=== PATIENT | female | born 1970 | race Caucasian/White ===

== ENCOUNTER 2019-08-06 08:57 | Day surgery (SDC) | payer OTHER ==
[2019-08-03 15:25] LABS: Absolute Lymphocytes (CBC) 2.8 K/uL (0.7-4.9); Basophils % 0.7 % (0-1.3); Hematocrit 41.5 % (36.0-45.0); Lymphocytes % 36.4 % (15.3-44.8); MPV 9.5 fL (7.6-11.3); Protime INR 0.97; RBC Red Blood Cell Count 4.41 M/uL (3.86-4.86)
[2019-08-03 15:33] LABS: Potassium 3.4 mmol/L (3.5-5.1)
[2019-08-03 15:34] LABS: Urine Appearance CLOUDY; Urine Bilirubin NEGATIVE (NEG); Urine Blood NEGATIVE (NEG); Urine Color YELLOW; Urine Glucose TRACE (NEG); Urine Protein NEGATIVE (NEG); Urine Specific Gravity >=1.030 (1.005-1.030)
[2019-08-03 15:47] LABS: Urine Microscopic Reflex ORDER UMIC
[2019-08-03 16:05] LABS: Urine Bacteria 20-50 /HPF (<20); Urine Culture Reflex Order REFLEXED; Urine Mucus 2+ /HPF (NONE SEEN); Urine RBC <5 /HPF (NONE SEEN)
[2019-08-06 09:16] LABS: Specific Gravity 1.025 (1.005-1.030)
[2019-08-06] MEDS ORDERED: SCOPOLAMINE HYDROBROMIDE PATCH TD ONE (09:41)
[2019-08-06] MEDS ORDERED: Ringers Lactate 1,000 ML IV ONE ×2 (09:41→13:13)
[2019-08-06] MEDS ORDERED: ROCURONIUM 50 MG/5 ML VIAL IV ONE (10:25)
[2019-08-06] MEDS ORDERED: LIDOCAINE 1% MPF 5 ML VIAL ONE (10:25)
[2019-08-06] MEDS ORDERED: propofoL 200 MG/20 ML VIAL IV ONE (10:25)
[2019-08-06] MEDS ORDERED: MIDAZOLAM HCL 2 MG/2 ML INJ ONE (10:25)
[2019-08-06] MEDS ORDERED: FENTANYL CITR 250 MCG/5 ML ONE (10:26)
[2019-08-06] MEDS ORDERED: BUPIVACAINE 0.25% PF 30 ML VIAL ONE (11:02)
[2019-08-06] MEDS ORDERED: NA CHLORIDE 0.9% 100 ML IV ONE (11:02)
[2019-08-06] MEDS ORDERED: VASOPRESSIN 20 UNIT/ML VIAL ONE (11:03)
[2019-08-06] MEDS: CEFAZOLIN/SWI 2gm 2 GM/20 ML SYR ONE ×2 (11:13→11:30)
[2019-08-06] MEDS ORDERED: dexAMETHasone 10 MG/ML VIAL ONE (11:40)
[2019-08-06] MEDS ORDERED: KETOROLAC 30 MG/ML INJ ONE ×2 (11:41→16:30)
[2019-08-06] MEDS ORDERED: ONDANSETRON 4 MG/2 ML VIAL ONE (11:46)
[2019-08-06] MEDS ORDERED: NS 0.9% VIAL 10 ML ONE ×2 (14:00→14:55)
[2019-08-06] MEDS ORDERED: CEFAZOLIN SODIUM 1 GM/VIAL ONE ×2 (14:00→14:36)
[2019-08-06] MEDS ORDERED: Phenylephrine HCl 10 MG/ML 1 ML VIAL ONE (14:55)
[2019-08-06] MEDS: Ringers Lactate 1,000 ML IV ONE ×2 (15:36→15:49)
[2019-08-06] MEDS ORDERED: MEPERIDINE HCL 50 MG/ML IM PRN (16:55)
[2019-08-06] MEDS ORDERED: IBUPROFEN 600 MG TAB PO PRN (16:57)
[2019-08-06] MEDS ORDERED: Ringers Lactate 1,000 ML IV SCH (17:00)
[2019-08-06 18:17] VITALS: BMI 34.5
[2019-08-06] MEDS: HYDROCODONE/APAP 5/325 MG TAB PO PRN (18:39)
[2019-08-07] MEDS: HYDROCODONE/APAP 5/325 MG TAB PO PRN ×3 (01:10→11:40)
[2019-08-07 01:27] VITALS: O2SAT 96
--- NOTE | 2019-08-07 01:50 | OP ---
Date of Procedure: 08/06/2019 Surgeon: Tona Barker MD Preoperative Diagnoses: Incomplete uterovaginal prolapse, abnormal uterine bleeding, likely from ovulatory dysfunction, AUB-L, the patient is status post ablation,SEAN, rectocele, perineal body defect Postoperative Diagnoses: Incomplete uterovaginal prolapse, abnormal uterine bleeding, likely from ovulatory dysfunction, AUB-L, the patient is status post ablation, stress urinary incontinence, rectocele, perineocele. Procedure Performed: 1. Total laparoscopic hysterectomy, bilateral salpingo-oophorectomy. 2. Uterosacral ligament suspension, colpopexy. 3. Mid urethral sling and cystoscopy. 4. Posterior repair perineorrhaphy. 5. Urethrocele repair. Anesthesia: General endotracheal. Specimens: Uterus, bilateral tubes and ovaries. Complications: No complications. Estimated Blood Loss: About 100. Urine Output: 350. Drains: No drains other than Garcia catheter. Vaginal sponge was left for packing. Findings: Pop-Q0, -2, -5, 5, 10, and 8, 0, 0, -4. There is a clear distal transverse defect of the post rectovaginal septum to the perineal body. The perineum body was torn in V-shaped fashion going proximally from the perineal body, the rectovaginal septum was torn up and amassed in the center. No other specific defect was seen now. Urethrocele was noted where the fascial support under the urethra was lost, so this was corrected and 2-0 Vicryl sutures were placed in a transverse fashion to pull this up and 3-0 Vicryl continuous running sutures to close the defect through which the sling was placed. Description Of Procedure: After informed consent was verified, patient was taken back to the OR, placed in supine fashion on the operating table. 3 g of Ancef was given. The patient was placed in a supine fashion. General anesthesia was given, placed in a dorsal lithotomy position using Roger stirrups. Arms were tucked by the side positioning checked. SCDs started. Abdomen, vulva, vagina, and perineum were prepped and draped in a sterile fashion. Garcia was placed to drain the bladder. Time-out was done and then procedure started. Speculum placed to expose the cervix. Anterior lip grasped with 2 Allis clamps. Due to the ablation, difficult to place the VCare, but it was placed depending on the assessed direction of the uterus by exam. No problems were encountered. Large cervix and so large VCare was used. Despite that, the cup seemed to be slightly smaller. Then Garcia placed to drain the bladder and attached for retrograde filling. This area was draped. 1 cm infraumbilical incision made with the scalpel using the open laparoscopy technique. Fascia incised and tagged with 0 Vicryl sutures. Peritoneum entered sharply. S-retractors were placed. Madie introduced. Insufflation done. Site of entry was checked, unremarkable. Patient placed in Trendelenburg. Bowel retracted with 3-0 Monocryl suture after 10 suprapubic and two 5s on each side and the left and right lower quadrants were placed under direct vision. Skin and fascia injected with 0.25% Marcaine before the trocars placed and at exit. The ureters were visualized, no anatomical distortion. The uterosacral on the right side was more prominent down the left side definitely a decent candidate for uterosacral colpopexy because of the right one. The right tube, utero-ovarian ligament, mesosalpinx, round ligament, broad ligament were all taken down. Vessels were exposed after taking the peritoneum down to the uterosacral in the posterior aspect and anteriorly creating a bladder flap. Then on the right side similar dissection was performed taking down the utero-ovarian ligament, mesosalpinx, round ligament, and then broad ligament opened up anteriorly and posteriorly, connected to the bladder flap anteriorly and posteriorly, taken to the posterior cup. The vessels were also skeletonized here, then the vesicovaginal space was entered anteriorly with the monopolar hook blade on top of the VCare cup was and the bladder dissected at least 2 cm inferior. The detrusor appeared to be adherent to the anterior vaginal wall. The vessels were taken down. Cardinal ligaments were taken down on the right and then on the left and the circumferential colpotomy performed to remove the 2 detached specimens. Specimen pulled out through the vagina. Both tubes and ovaries removed with the help of the LigaSure. All the specimen were retrieved without any problems. There were dilated tubes left more than the right. The vaginal cuff was closed with the help of 0 PDS simple at the angles and 3 [id number] in the middle with good apposition and excellent apposition of the anterior and posterior wall connective tissues at the level of the apex. Then, the right uterosacral was detached from the apex and this was picked up and reattached with the help of 0 PDS and then this was passed through the posterior vaginal wall, anterior vaginal wall, entire thickness and then tied. A similar dissection was attempted on the left side as well as all the way to the uterosacral was not as prominent so a stay suture was placed to get good retraction, then was able to place it through the connective tissue in the area of the uterosacral and then attached to the posterior wall, anterior wall, and tied. With excellent support on clinical examination through the vagina, the apex was at least -7. The anterior vaginal wall lift was not as high, however, patient was asymptomatic from her cystocele. Therefore, this was not going to be addressed at this time. Cystoscopy was performed, both ureteric orifices were visualized with strong jets of urine were seen from both. Then, all the trocars were removed after thorough irrigation and suction were done and there was excellent hemostasis. The fascia at the umbilicus closed with 0 Vicryl tag sutures, tied to each other, and simple 0 Vicryl stitch in the suprapubic fascial incision. The skin incisions closed with the help of bar. Mid urethral tissue was picked up, vaginal epithelium with 2 Allis clamps, injected with dilute vasopressin in the subfascial, prefascial plane, uterocele was noted as well. After making a 1 cm mid urethral incision, the dissection was performed full thickness to the ipsilateral obturator space hugging the inferior pubic ramus at a 45-degree angle to the horizontal and vertical planes pointing to the ipsilateral shoulder. The patient is placed in lithotomy during this. Same dissection on the opposite side, after the wing guide was placed, pass was taken for the transobturator sling from inside out without any problems. Similarly, on the left side, the same thing was passed. The plastic sheath dilators were pulled on both sides. The plastic sheaths with the sling were held with Bren's and tensioning was performed with the help of [place]le in between the urethra and the sling in the midline. Once the plastic sheaths were removed after appropriate tensioning, there was no pillowing, the sling was just in contact with the tissue. The urethrocele repair was performed by opening up the fascial tissue here both anteriorly and posteriorly and I was able to do 2 interrupted 2-0 Vicryl sutures to bring the fascial planes together in an anterior-posterior direction. Then, the closure of the skin incision was done after trimming the vaginal epithelium from [id number] with the help of continuous running 3-0 Vicryl. Then cystoscopy was performed again and the urethra was unremarkable. Bladder was fine. No evidence of any perforation. The Garcia was replaced. Posteriorly, the rectovaginal exam was performed. It was clear that there was only very small amount of perineal body together most distally. The defect of the posterior wall was mostly in the lower 1/3rd and appeared to be from a site- specific defect. So, Allis clamps were placed at the area where the hymenal remnants were present on each side. Then, vasopressin was injected in the lower half of the vaginal wall and then once this was done, a austin-shaped incision was made with the help of a scalpel and the vaginal epithelium and sub-epithelium were removed from the underlying tissues. Then, the underlying tissues were well examined, there was a thick area of the rectovaginal septum, all bunched up together in the center, attached in a V-shape as described in the findings. Once this was recognized I put in a rectal finger to confirm, so plan was to rebuild the perineal body, then stitch the V-shaped defect back in its place. So, the perineal body defect repair was performed with 2-0 Vicryl sutures x3. Then, 0 PDS was used to reattach the rectovaginal septum on the sides and to the perineal body with the help of continuous running 2-0 PDS starting from the right to the left. There was excellent replacement of the support and no foreign body in the rectum, so gloves were changed, then vaginal epithelium was trimmed appropriately and sutured transversely down in the perineal area and 2-0 Vicryl used in the vestibular area for closure. Rectal exam negative. Vaginal packing was placed. Instrument, needle, and sponge counts were correct at the end of the case. The patient tolerated the procedure well. She was recovered from anesthesia and taken to the PACU in stable condition. Garcia was left in place. She will be here until tomorrow. Re-dose of Ancef was done in 3 hours. ENE Voice ID: [id number] Report ID: [id number] MTDD
[2019-08-07 07:28] VITALS: BP 141/79; TEMP 98.9
== END 2019-08-07 11:50 | disposition home or self-care (01) ==
LOC: OR 08:57 → 2ND-WC 16:47 → OR 08-07 11:50
PROVIDERS: ATTEND Obstetrics & Gynecology
PROC: 0UT24ZZ Resection of Bilateral Ovaries, Percutaneous Endoscopic Approach (ICD-10-PCS; 2019-08-06)
PROC: 0UT74ZZ Resection of Bilateral Fallopian Tubes, Percutaneous Endoscopic Approach (ICD-10-PCS; 2019-08-06)
PROC: 0JQC0ZZ Repair Pelvic Region Subcutaneous Tissue and Fascia, Open Approach (ICD-10-PCS; 2019-08-06)
PROC: 0JQC0ZZ Repair Pelvic Region Subcutaneous Tissue and Fascia, Open Approach (ICD-10-PCS; 2019-08-06)
PROC: 0WQN0ZZ Repair Female Perineum, Open Approach (ICD-10-PCS; 2019-08-06)
PROC: 0USG7ZZ Reposition Vagina, Via Natural or Artificial Opening (ICD-10-PCS; 2019-08-06)
PROC: 0TSD4ZZ Reposition Urethra, Percutaneous Endoscopic Approach (ICD-10-PCS; 2019-08-06)
PROC: 0UT94ZZ Resection of Uterus, Percutaneous Endoscopic Approach (ICD-10-PCS; principal; 2019-08-06 10:30)
DX: N81.2 Incomplete uterovaginal prolapse (principal); N81.81 Perineocele; N32.81 Overactive bladder; N39.3 Stress incontinence (female) (male); N93.9 Abnormal uterine and vaginal bleeding, unspecified; N88.8 Other specified noninflammatory disorders of cervix uteri; D25.9 Leiomyoma of uterus, unspecified; N80.0 Endometriosis of uterus; N94.89 Other specified conditions associated with female genital organs and menstrual cycle; N83.12 Corpus luteum cyst of left ovary; D27.0 Benign neoplasm of right ovary; N83.201 Unspecified ovarian cyst, right side
CPT/HCPCS: 87088; 85025; 87086; 80048; 36415; 86900; 86850; 81025; 85610; 86901; 88307; 85730; 58571; 57260; 57283; 57288; J2704; J2370; J2250; J3010; J1100; J0690 ×3; J7120 ×5; J2405; 81003; 81015

== ENCOUNTER 2019-12-11 12:27 | Emergency (ER) | payer BC, OTHER ==
[2019-12-11 13:41] LABS: Basophils % 0.9 % (0-1.3); Hematocrit 41.6 % (36.0-45.0); MPV 9.1 fL (7.6-11.3); Protime INR 0.99; RBC Red Blood Cell Count 4.57 M/uL (3.86-4.86)
[2019-12-11] MEDS ORDERED: ALBUTEROL INHALER 60 PUFF/8 GM IH ONE (13:58)
[2019-12-11] MEDS ORDERED: ASPIRIN 81 MG CHEWABLE TABLET ONE (13:58)
--- NOTE | 2019-12-11 14:03 | RAD REPORT ---
EXAM DESCRIPTION: RAD - Chest Single View - 12/11/2019 1:50 pm CLINICAL HISTORY: CHEST PAIN COMPARISON: None TECHNIQUE: AP portable chest image was obtained 12/11/2019 1:50 pm . FINDINGS: Lungs are clear. Heart and vasculature are normal. No measurable pleural effusion and no p neumothorax. No acute bony abnormality seen. No acute aortic findings suspected. IMPRESSION: No acute cardiopulmonary process.
[2019-12-11 14:09] LABS: Urine Blood TRACE (NEG); Urine Glucose NEGATIVE (NEG); Urine Protein NEGATIVE (NEG); Urine Specific Gravity 1.015 (1.005-1.030); Urine pH 6.5 (5.0-7.0)
[2019-12-11 14:10] LABS: ALT/SGPT 104 U/L (12-78); AST/SGOT 66 U/L (15-37); Albumin 4.2 g/dL (3.4-5.0); Alkaline Phosphatase 113 U/L (45-117); BUN Blood Urea Nitrogen 11 mg/dL (7-18); Bicarbonate 27 mmol/L (21-32); Bilirubin Direct 0.2 mg/dL (0-0.2); Bilirubin Total 0.7 mg/dL (0.2-1.0); Glucose Level 75 mg/dL (74-106); Magnesium 2.3 mg/dL (1.8-2.4); NT PRO-BNP 30 pg/mL (<125); Potassium 3.5 mmol/L (3.5-5.1); Protein, Total 7.9 g/dL (6.4-8.2); Sodium Level 141 mmol/L (136-145); Troponin (Emerg Dept Use Only) < 0.02 ng/mL (0.0-0.045)
--- NOTE | 2019-12-11 14:48 | EDPHYS ---
Physician Documentation [facility] Name: Hanna Wang Age: 49 yrs Sex: Female : 1970 Arrival Date: 12/11/2019 Time: 12:37 Bed 16 Private MD: ED Physician Gaston Rincon HPI: 12/10 13:05 This 49 yrs old Female presents to ER via EMS with complaints of Chest Pain. cp 13:05 The patient or guardian reports chest pain that is located primarily in the anterior cp chest wall. 13:05 Onset: yesterday. The pain radiates to back. Associated signs and symptoms: Pertinent cp positives: cough, shortness of breath, Pertinent negatives: abdominal pain, diaphoresis, dizziness, lower extremity pain, lower extremity swelling, syncope. The chest pain is described as a heaviness. Duration: The patient or guardian reports multiple episodes, that wax and wane. 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 - Social history:: Smoking status: Patient denies any tobacco usage or history of. ROS: 13:10 Constitutional: Negative for body aches, chills, fever, poor PO intake. cp 13:10 Eyes: Negative for injury, pain, redness, and discharge. cp 13:10 ENT: Negative for ear pain, sore throat, difficulty swallowing. 13:10 Cardiovascular: Positive for chest pain, Negative for edema, palpitations. 13:10 Respiratory: Positive for cough, with no reported sputum, shortness of breath, Negative for wheezing. 13:10 Abdomen/GI: Negative for abdominal pain, vomiting, diarrhea, constipation. 13:10 Back: Negative for radiated pain. 13:10 Neuro: Negative for altered mental status, headache, syncope, weakness. 13:10 All other systems are negative. Exam: 13:18 Constitutional: The patient appears in no acute distress, alert, awake, cp non-diaphoretic, well developed, well nourished. 13:18 Head/Face: Normocephalic, atraumatic. cp 13:18 Eyes: Periorbital structures: appear normal, Conjunctiva: normal, no exudate, no injection, Sclera: no appreciated abnormality, Lids and lashes: appear normal, bilaterally. 13:18 ENT: External ear(s): are unremarkable, Nose: is normal, Mouth: Lips: moist, Oral mucosa: moist, Posterior pharynx: is normal, airway is patent. 13:18 Neck: ROM/movement: is normal, is supple, no meningismus, no nuchal rigidity. 13:18 Chest/axilla: Inspection: normal, Palpation: is normal, no crepitus, no tenderness. 13:18 Cardiovascular: Rate: normal, Rhythm: regular, Edema: is not appreciated, JVD: is not appreciated. 13:18 Respiratory: the patient does not display signs of respiratory distress, Respirations: normal, no use of accessory muscles, no retractions, labored breathing, is not present, Breath sounds: are clear throughout, no decreased breath sounds, no stridor, no wheezing. 13:18 Abdomen/GI: Inspection: abdomen appears normal, Palpation: abdomen is soft and non-tender, in all quadrants. 13:18 Back: pain, is absent, ROM is normal. 13:18 Neuro: Orientation: to person, place \T\ time. Mentation: is normal, Cerebellar function: is grossly normal, Motor: moves all fours, strength is normal, Sensation: is normal. 13:20 ECG was reviewed by the Attending Physician. Vital Signs: 12:35 BP 135 / 85; Pulse 68; Resp 17 S; Temp 98.6(O); Pulse Ox 96% on R/A; Weight 83.91 kg ca1 (R); Height 5 ft. 2 in. (157.48 cm) (R); 13:45 BP 150 / 80; Pulse 81; Resp 16 S; Pulse Ox 98% on R/A; ca1 14:50 BP 130 / 80; Pulse 84; Resp 17 S; Pulse Ox 100% on R/A; ca1 12:35 Body Mass Index 33.84 (83.91 kg, 157.48 cm) ca1 MDM: 12:47 Patient medically screened. cp 14:44 The patient was given aspirin in the Emergency Department. cp 14:44 Data reviewed: vital signs, nurses notes, lab test result(s), EKG, radiologic studies, cp plain films. Test interpretation: by ED physician or midlevel provider: ECG. Counseling: I had a detailed discussion with the patient and/or guardian regarding: the historical points, exam findings, and any diagnostic results supporting the discharge/admit diagnosis, lab results, radiology results, the need for outpatient follow up, a family practitioner, to return to the emergency department if symptoms worsen or persist or if there are any questions or concerns that arise at home. Response to treatment: the patient's symptoms have markedly improved after treatment. Special discussion: Based on the patient's history, exam, and Dx evaluation, there is no indication for emergent intervention or inpatient Tx. It is understood by the patient/guardian that if the Sx's persist or worsen they need to return immediately for re-evaluation. 12/10 12:42 Order name: Basic Metabolic Panel sv 12/10 12:42 Order name: CBC with Diff; Complete Time: 14:11 sv 12/10 12:42 Order name: LFT's sv 12/10 12:42 Order name: Magnesium; Complete Time: 14:25 sv 12/10 12:42 Order name: NT PRO-BNP; Complete Time: 14:25 sv 12/10 12:42 Order name: PT-INR; Complete Time: 14:11 sv 12/10 12:42 Order name: Troponin (emerg Dept Use Only); Complete Time: 14:25 sv 12/10 14:26 Interpretation: Within normal limits: TROPED < 0.02. cp 12/10 12:42 Order name: XRAY Chest (1 view); Complete Time: 14:11 sv 12/10 12:42 Order name: Basic Metabolic Panel; Complete Time: 14:11 EDMS 12/10 14:11 Interpretation: Normal except: CL 108; GFR 81. cp 12/10 12:42 Order name: Liver (Hepatic) Function; Complete Time: 14:11 EDMS 12/10 14:11 Interpretation: Normal except: AST 66; ALT 104; GLOB 3.7. cp 12/10 13:49 Order name: Urine Dipstick--Ancillary (enter results); Complete Time: 14:11 eb 12/10 13:49 Order name: Urine --Ancillary (enter results); Complete Time: 14:11 eb 12/10 14:27 Order name: COVID-19 cp 12/10 12:42 Order name: EKG; Complete Time: 12:43 sv 12/10 12:42 Order name: Cardiac monitoring; Complete Time: 13:35 sv 12/10 12:42 Order name: EKG - Nurse/Tech; Complete Time: 13:34 sv 12/10 12:42 Order name: IV Saline Lock; Complete Time: 13:34 sv 12/10 12:42 Order name: Labs collected and sent; Complete Time: 13:34 sv 12/10 12:42 Order name: O2 Per Protocol; Complete Time: 13:39 sv 12/10 12:42 Order name: O2 Sat Monitoring; Complete Time: 13:39 sv EC:20 Rate is 77 beats/min. Rhythm is regular. TN interval is normal. QRS interval is normal. cp QT interval is normal. T waves are Inverted in lead aVR. Interpreted by me. Reviewed by me. Administered Medications: 13:40 Drug: Aspirin Chewable Tablet 324 mg Route: PO; ca1 14:30 Follow up: Response: No adverse reaction ca1 13:41 Drug: Albuterol HFA Inhaler 2 puffs Route: Inhalation; ca1 14:30 Follow up: Response: No adverse reaction; Marked relief of symptoms ca1 14:51 Drug: SOLU-Medrol 60 mg Route: IVP; Site: left antecubital; ca1 15:02 Follow up: Response: No adverse reaction ca1 Disposition: 15:55 Co-signature as Attending Physician, Gatson Rincon MD I agree with the assessment and kdr plan of care. Disposition: 12/11/19 14:48 Discharged to Home. Impression: Unspecified asthma with (acute) exacerbation, Other chest pain. - Condition is Stable. - Discharge Instructions: Asthma, Adult, Nonspecific Chest Pain, Aspirin and Your Heart. - Prescriptions for Prednisone 20 mg Oral Tablet - take 2 tablet by ORAL route once daily for 5 days; 10 tablet. Albuterol Sulfate 90 mcg/actuation - inhale 1-2 puff by INHALATION route every 4-6 hours; 1 Inhaler. - Medication Reconciliation Form, Thank You Letter, Antibiotic Education, Prescription Opioid Use, Work release form form. - Follow up: Demarcus Kerr MD; When: 2 - 3 days; Reason: Recheck today's complaints. - Problem is new. - Symptoms have improved. Signatures: Dispatcher [employer] Keisha Boyle RN RN sv Rittger, Kevin, MD MD kdr Page, Corey, PA PA cp Acob, Cheryl, RN RN ca1 Corrections: (The following items were deleted from the chart) 15:22 14:48 12/11/2019 14:48 Discharged to Home. Impression: Unspecified asthma with (acute) ca1 exacerbation; Other chest pain. Condition is Stable. Forms are Medication Reconciliation Form, Thank You Letter, Antibiotic Education, Prescription Opioid Use. Follow up: Demarcus Kerr; When: 2 - 3 days; Reason: Recheck today's complaints. Problem is new. Symptoms have improved. cp
--- NOTE | 2019-12-11 14:48 | ER ---
Nurse's Notes [facility] Name: Hanna Wang Age: 49 yrs Sex: Female : 1970 Arrival Date: 12/11/2019 Time: 12:37 Bed 16 Private MD: Diagnosis: Unspecified asthma with (acute) exacerbation;Other chest pain Presentation: 12/10 12:32 Chief complaint: EMS states: sent by Dr Kerr's office for chest pain that radiates to sv the back and SOB. Normal EKG, BP 146/78. Pt reports non-productive cough that started today. Risk Assessment: Do you want to hurt yourself or someone else? Patient reports no desire to harm self or others. Onset of symptoms was December 11, 2019. 12:32 Method Of Arrival: EMS: [facility] sv 12:32 Acuity: VIJI 3 sv 12:35 Coronavirus screen: Client denies travel out of the [place] in the last 14 days. shortness ca1 of breath, Client presents with at least one sign or symptom that may indicate coronavirus-19. Standard/surgical mask placed on the client. Provider contacted for isolation considerations. Ebola Screen: Patient negative for fever greater than or equal to 101.5 degrees Fahrenheit, and additional compatible Ebola Virus Disease symptoms Patient denies exposure to infectious person. Patient denies travel to an Ebola-affected area in the 21 days before illness onset. No symptoms or risks identified at this time. Initial Sepsis Screen: Does the patient meet any 2 criteria? No. Patient's initial sepsis screen is negative. Does the patient have a suspected source of infection? No. Patient's initial sepsis screen is negative. 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 - Social history:: Smoking status: Patient denies any tobacco usage or history of. Screenin:45 Abuse screen: Denies threats or abuse. Denies injuries from another. Nutritional ca1 screening: No deficits noted. Tuberculosis screening: No symptoms or risk factors identified. Fall Risk IV access (20 points). Assessment: 12:45 General: Appears in no apparent distress. comfortable, Behavior is calm, cooperative, ca1 appropriate for age. Pain: Complains of pain in chest Pain radiates to back Pain currently is 3 out of 10 on a pain scale. Quality of pain is described as heavy, Pain began 2-3 days ago. Is continuous, Also complains of shortness of breath. Neuro: Level of Consciousness is awake, alert, obeys commands, Oriented to person, place, time, situation. Cardiovascular: Heart tones S1 S2 present Capillary refill < 3 seconds Patient's skin is warm and dry. Rhythm is sinus rhythm. Respiratory: Airway is patent Respiratory effort is even, unlabored, Respiratory pattern is regular, symmetrical, Breath sounds are clear bilaterally. GI: Abdomen is round non-distended, Bowel sounds present X 4 quads. Abd is soft and non tender X 4 quads. : No signs and/or symptoms were reported regarding the genitourinary system. EENT: No signs and/or symptoms were reported regarding the EENT system. Derm: Skin is intact, is healthy with good turgor, Skin is pink, warm \T\ dry. Musculoskeletal: Circulation, motion, and sensation intact. Capillary refill < 3 seconds. 13:48 Reassessment: Patient appears in no apparent distress at this time. Patient and/or ca1 family updated on plan of care and expected duration. Pain level reassessed. Patient is alert, oriented x 3, equal unlabored respirations, skin warm/dry/pink. 14:45 Reassessment: Patient appears in no apparent distress at this time. Patient and/or ca1 family updated on plan of care and expected duration. Pain level reassessed. Patient is alert, oriented x 3, equal unlabored respirations, skin warm/dry/pink. Vital Signs: 12:35 BP 135 / 85; Pulse 68; Resp 17 S; Temp 98.6(O); Pulse Ox 96% on R/A; Weight 83.91 kg ca1 (R); Height 5 ft. 2 in. (157.48 cm) (R); 13:45 BP 150 / 80; Pulse 81; Resp 16 S; Pulse Ox 98% on R/A; ca1 14:50 BP 130 / 80; Pulse 84; Resp 17 S; Pulse Ox 100% on R/A; ca1 12:35 Body Mass Index 33.84 (83.91 kg, 157.48 cm) ca1 ED Course: 12:37 Patient arrived in ED. sv 12:38 AcobIona, RN is Primary Nurse. ca1 12:45 Triage completed. sv 12:45 Arm band placed on. sv 12:45 Patient has correct armband on for positive identification. Placed in gown. Bed in low ca1 position. Call light in reach. Side rails up X2. pier runner on. Pulse ox on. NIBP on. Warm blanket given. 12:45 Patient maintains SpO2 saturation greater than 95% on room air. ca1 12:47 Ahmet Cruz PA is PHCP. cp 12:47 Gaston Rincon MD is Attending Physician. cp 13:34 Liver (Hepatic) Function Sent. mh5 13:34 Basic Metabolic Panel Sent. mh5 13:34 Basic Metabolic Panel Sent. mh5 13:34 CBC with Diff Sent. 5 13:35 LFT's Sent. mh5 13:35 Magnesium Sent. mh5 13:35 NT PRO-BNP Sent. mh5 13:35 PT-INR Sent. 5 13:35 Troponin (emerg Dept Use Only) Sent. 5 13:36 Initial lab(s) drawn, by ak, sent to lab. Inserted saline lock: 20 gauge in left mh5 antecubital area, using aseptic technique. Blood collected. 13:37 Patient has correct armband on for positive identification. Placed in gown. Bed in low mh5 position. Call light in reach. Side rails up X 1. Adult w/ patient. Warm blanket given. pier runner on. Pulse ox on. NIBP on. 13:37 EKG done, by ED staff, reviewed by Gaston Rincon MD. [facility] 13:51 XRAY Chest (1 view) In Process Unspecified. EDMS 14:47 Demarcus Kerr MD is Referral Physician. cp 15:01 COVID-19 Sent. ca1 15:10 No provider procedures requiring assistance completed. IV discontinued, intact, ca1 bleeding controlled, No redness/swelling at site. Pressure dressing applied. Administered Medications: 13:40 Drug: Aspirin Chewable Tablet 324 mg Route: PO; ca1 14:30 Follow up: Response: No adverse reaction ca1 13:41 Drug: Albuterol HFA Inhaler 2 puffs Route: Inhalation; ca1 14:30 Follow up: Response: No adverse reaction; Marked relief of symptoms ca1 14:51 Drug: SOLU-Medrol 60 mg Route: IVP; Site: left antecubital; ca1 15:02 Follow up: Response: No adverse reaction ca1 Outcome: 14:48 Discharge ordered by . demarcus 15:10 Discharged to home ambulatory, with family. ca1 15:10 Condition: stable 15:10 Discharge instructions given to patient, Instructed on discharge instructions, follow up and referral plans. medication usage, Demonstrated understanding of instructions, follow-up care, medications, Prescriptions given X 2. 15:22 Patient left the ED. ca1 Signatures: Dispatcher [employer] Keisha Boyle, RN RN Ahmet Morrison, Gissel Betancourt cp [facility] Iona Hernandez RN RN ca1
[2019-12-11] MEDS ORDERED: METHYLPREDNISOLONE 125 MG INJ ONE (14:59)
[2019-12-11 15:27] VITALS: TEMP 98.6
[2019-12-11 15:31] VITALS: BP 130/80; O2SAT 100
--- NOTE | 2019-12-12 09:33 | EKG ---
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
== END 2019-12-11 15:22 | disposition home or self-care (01) ==
LOC: ER 12:27
DX: J45.901 Unspecified asthma with (acute) exacerbation (principal); Z20.828 Contact with and (suspected) exposure to other viral communicable diseases; Z88.5 Allergy status to narcotic agent
CPT/HCPCS: 93005; 85025; 80048; 36415; 83735; 81025; 85610; 80076; 81003; 84484; 83880; 71045; 96374; 99285; U0002; J2930